=== PATIENT | female | born 1985 | race Caucasian/White ===

== ENCOUNTER 2016-06-27 12:22 | Outpatient (CLI) | payer OTHER ==
[~2016-06-27] VITALS: Ht 172.7 cm; Wt 77.2 kg
[2016-06-27] VITALS (8 sets, daily range): BP systolic 136–157; BP diastolic 81–98
[~2016-06-27 12:22] MED LIST: PRENATAL TABLE1 EAC3 PO; ZOFRAN ODT8 MG PO
[2016-06-27 13:05] LABS: EOSINOPHIL (%) 0.8 % (0-5); EOSINOPHIL COUNT 0.1 K/uL (0-0.3); HEMATOCRIT 32.4 % (36.0-46.0); IMMATURE GRANULOCYTE (%) 0.2 % (0.0-0.7); LYMPHOCYTE COUNT 1.5 K/uL (1.0-2.8); MCH 31.7 PG (29.0-34.0); MCHC 35.2 G/DL (30.0-36.0); MONOCYTE COUNT 0.8 K/uL (0-0.8); NEUTROPHIL COUNT 6.8 K/uL (1.8-6.4); PLATELET COUNT 208 K/uL (156-360); RBC DIS.WIDTH-SD 39.4 % (39-53); WHITE BLOOD COUNT 9.2 K/uL (4.1-10.2)
[2016-06-27] MEDS ORDERED: FIORICET,ESG1 TABLET PO (13:07)
[2016-06-27 13:44] LABS: ANION GAP 8 MEQ/L (2-14); CHLORIDE 108 MEQ/L (99-109); POTASSIUM 4.3 MEQ/L (3.7-5.4); SAMPLE HEMOLYSIS CHECK 0; SAMPLE ICTERIC CHECK 0; SAMPLE LIPEMIA CHECK 0; SODIUM 137 MEQ/L (136-147); TOTAL BILIRUBIN 0.2 MG/DL (0.0-1.0)
[2016-06-27 13:49] LABS: ALKALINE PHOSPHATASE 119 IU/L (3-129); GFR ESTIMATE (CALCULATED) > 59 mL/min/; GLUCOSE 72 mg/dL (70-99); UREA NITROGEN (BUN) 9 mg/dL (9-23); URIC ACID 4.1 mg/dL (3.1-9.2)
[2016-06-27 14:16] LABS: UR CREATININE CONCENTRATION 181.6 MG/DL
== END 2016-06-27 16:19 | disposition home or self-care (01) ==
LOC: LDRP-OP 12:22 → 2WEST 12:23 → LDRP-OP 09-20 10:22
PROVIDERS: Nurse Practitioner
DX: O16.3 Unspecified maternal hypertension, third trimester (principal); O99.89 Other specified diseases and conditions complicating pregnancy, childbirth and the puerperium; Z3A.31 31 weeks gestation of pregnancy
CPT/HCPCS: 59025; 80053; 82570; 84156; 84550; 85025; G0378

== ENCOUNTER 2016-06-28 20:19 | Outpatient (CLI) | payer OTHER ==
[2016-06-28] VITALS (9 sets, daily range): BP systolic 136–163; BP diastolic 79–92
[~2016-06-28 20:19] MED LIST changes: +FIORICET,ESG1 TABLET PO
[2016-06-28 21:31] LABS: EOSINOPHIL (%) 1.1 % (0-5); EOSINOPHIL COUNT 0.1 K/uL (0-0.3); HEMATOCRIT 31.2 % (36.0-46.0); IMMATURE GRANULOCYTE (%) 0.1 % (0.0-0.7); MCH 31.6 PG (29.0-34.0); MCHC 34.6 G/DL (30.0-36.0); MCV 91.2 FL (83-99); MEAN PLAT.VOLUME 11.1 uM^3 (9.5-12.4); MONOCYTE (%) 7.2 % (3-12); MONOCYTE COUNT 0.7 K/uL (0-0.8); NEUTROPHIL COUNT 6.4 K/uL (1.8-6.4); PLATELET COUNT 197 K/uL (156-360); RBC DIS.WIDTH-CV 11.9 % (11.8-14.6); RBC DIS.WIDTH-SD 39.7 % (39-53); RED BLOOD COUNT 3.42 M/uL (3.80-5.20); WHITE BLOOD COUNT 9.2 K/uL (4.1-10.2)
[2016-06-28 21:53] LABS: ALKALINE PHOSPHATASE 127 IU/L (3-129); ANION GAP 11 MEQ/L (2-14); CHLORIDE 106 MEQ/L (99-109); GFR ESTIMATE (CALCULATED) > 59 mL/min/; GLUCOSE 90 mg/dL (70-99); POTASSIUM 4.1 MEQ/L (3.7-5.4); SAMPLE HEMOLYSIS CHECK 0; SAMPLE ICTERIC CHECK 0; SAMPLE LIPEMIA CHECK 0; SODIUM 138 MEQ/L (136-147); TOTAL BILIRUBIN 0.2 MG/DL (0.0-1.0); UREA NITROGEN (BUN) 8 mg/dL (9-23); URIC ACID 4.1 mg/dL (3.1-9.2)
[2016-06-28 21:55] LABS: UR CREATININE CONCENTRATION 115.2 MG/DL
== END 2016-06-28 22:50 | disposition home or self-care (01) ==
LOC: LDRP-OP 20:19 → 2WEST 20:20 → LDRP-OP 09-20 17:34
PROVIDERS: Midwife
DX: O16.3 Unspecified maternal hypertension, third trimester (principal); O99.89 Other specified diseases and conditions complicating pregnancy, childbirth and the puerperium; Z3A.31 31 weeks gestation of pregnancy
CPT/HCPCS: 59025; 80053; 82570; 84156; 84550; 85025; G0378

== ENCOUNTER 2016-07-01 15:40 | Outpatient (CLI) | payer OTHER ==
[2016-07-01] VITALS (7 sets, daily range): BP systolic 134–161; BP diastolic 78–96
[~2016-07-01] VITALS: Ht 172.7 cm; Wt 80.7 kg
[2016-07-01 16:41] LABS: EOSINOPHIL (%) 0.8 % (0-5); EOSINOPHIL COUNT 0.1 K/uL (0-0.3); HEMATOCRIT 30.6 % (36.0-46.0); IMMATURE GRANULOCYTE (%) 0.3 % (0.0-0.7); LYMPHOCYTE COUNT 1.6 K/uL (1.0-2.8); MCH 31.2 PG (29.0-34.0); MCV 89.2 FL (83-99); MEAN PLAT.VOLUME 10.7 uM^3 (9.5-12.4); MONOCYTE (%) 9.9 % (3-12); MONOCYTE COUNT 0.9 K/uL (0-0.8); NEUTROPHIL (%) 71.5 % (45-76); NEUTROPHIL COUNT 6.7 K/uL (1.8-6.4); PLATELET COUNT 185 K/uL (156-360); RBC DIS.WIDTH-CV 12.1 % (11.8-14.6); RBC DIS.WIDTH-SD 38.9 % (39-53); RED BLOOD COUNT 3.43 M/uL (3.80-5.20); WHITE BLOOD COUNT 9.3 K/uL (4.1-10.2)
[2016-07-01 17:06] LABS: ALKALINE PHOSPHATASE 125 IU/L (3-129); ANION GAP 9 MEQ/L (2-14); CHLORIDE 108 MEQ/L (99-109); GFR ESTIMATE (CALCULATED) > 59 mL/min/; GLUCOSE 96 mg/dL (70-99); POTASSIUM 3.8 MEQ/L (3.7-5.4); SAMPLE HEMOLYSIS CHECK 0; SAMPLE ICTERIC CHECK 0; SAMPLE LIPEMIA CHECK 0; SODIUM 138 MEQ/L (136-147); TOTAL BILIRUBIN 0.2 MG/DL (0.0-1.0); UREA NITROGEN (BUN) 8 mg/dL (9-23)
[2016-07-01 17:22] LABS: UR CREATININE CONCENTRATION 58.8 MG/DL
[2016-07-02] VITALS (7 sets, daily range): BP systolic 114–165; BP diastolic 60–98
[2016-07-02 07:09] LABS: EOSINOPHIL (%) 0 % (0-5); HEMATOCRIT 32.8 % (36.0-46.0); IMMATURE GRANULOCYTE (%) 0.4 % (0.0-0.7); IMMATURE GRANULOCYTE COUNT 0.1 K/uL; LYMPHOCYTE COUNT 1.1 K/uL (1.0-2.8); MCH 31.1 PG (29.0-34.0); MCHC 34.8 G/DL (30.0-36.0); MCV 89.4 FL (83-99); MEAN PLAT.VOLUME 11.5 uM^3 (9.5-12.4); MONOCYTE (%) 2.2 % (3-12); MONOCYTE COUNT 0.3 K/uL (0-0.8); NEUTROPHIL (%) 88.9 % (45-76); NEUTROPHIL COUNT 11.7 K/uL (1.8-6.4); PLATELET COUNT 223 K/uL (156-360); RBC DIS.WIDTH-CV 11.8 % (11.8-14.6); RBC DIS.WIDTH-SD 38.4 % (39-53); RED BLOOD COUNT 3.67 M/uL (3.80-5.20)
[2016-07-02 07:12] LABS: WHITE BLOOD COUNT 13.1 K/uL (4.1-10.2)
[2016-07-02 10:02] LABS: ALKALINE PHOSPHATASE 131 IU/L (3-129); ANION GAP 11 MEQ/L (2-14); CHLORIDE 107 MEQ/L (99-109); GFR ESTIMATE (CALCULATED) > 59 mL/min/; GLUCOSE 124 mg/dL (70-99); SAMPLE HEMOLYSIS CHECK 0; SAMPLE ICTERIC CHECK 0; SAMPLE LIPEMIA CHECK 0; SODIUM 138 MEQ/L (136-147); UREA NITROGEN (BUN) 9 mg/dL (9-23)
[2016-07-02 10:04] LABS: TOTAL BILIRUBIN 0.3 MG/DL (0.0-1.0)
[2016-07-03 01:49] VITALS: BP 128/83
[2016-07-03 06:24] LABS: HEMATOCRIT 31.7 % (36.0-46.0); MCH 30.6 PG (29.0-34.0); MCHC 33.8 G/DL (30.0-36.0); MCV 90.6 FL (83-99); MEAN PLAT.VOLUME 11.3 uM^3 (9.5-12.4); PLATELET COUNT 220 K/uL (156-360); RBC DIS.WIDTH-CV 12.1 % (11.8-14.6); RBC DIS.WIDTH-SD 39.2 % (39-53); WHITE BLOOD COUNT 16.9 K/uL (4.1-10.2)
[2016-07-03 06:44] LABS: ALKALINE PHOSPHATASE 120 IU/L (3-129); ANION GAP 9 MEQ/L (2-14); CHLORIDE 109 MEQ/L (99-109); GFR ESTIMATE (CALCULATED) > 59 mL/min/; GLUCOSE 125 mg/dL (70-99); POTASSIUM 4.1 MEQ/L (3.7-5.4); SAMPLE HEMOLYSIS CHECK 0; SAMPLE ICTERIC CHECK 0; SAMPLE LIPEMIA CHECK 0; SODIUM 140 MEQ/L (136-147); UREA NITROGEN (BUN) 11 mg/dL (9-23)
[2016-07-03 06:45] LABS: TOTAL BILIRUBIN 0.2 MG/DL (0.0-1.0)
[2016-07-03 07:36] VITALS: BP 145/84
== END 2016-07-03 11:24 | disposition home or self-care (01) ==
LOC: LDRP-OP 15:40 → 2WEST 15:41 → LDRP-OP 09-20 23:10
PROVIDERS: Nurse Practitioner; Obstetrics & Gynecology
DX: O14.03 Mild to moderate pre-eclampsia, third trimester (principal); Z3A.32 32 weeks gestation of pregnancy
CPT/HCPCS: 59025; 80053; 81050; 82570; 84156; 85025; 85027; G0378; J0702

== ENCOUNTER 2016-07-04 10:58 | Inpatient (IN) | payer OTHER ==
[2016-07-04] VITALS (18 sets, daily range): BP systolic 121–176; BP diastolic 77–99
[~2016-07-04] VITALS: Ht 172.7 cm; Wt 82.3 kg
[2016-07-04 12:13] LABS: FIBRINOGEN 321 MG/DL (160-450); PROTHROMBIN TIME 9.9 (9.2-11.2)
[2016-07-04 12:20] LABS: EOSINOPHIL (%) 0.1 % (0-5); HEMATOCRIT 32.3 % (36.0-46.0); IMMATURE GRANULOCYTE COUNT 0.3 K/uL; LYMPHOCYTE COUNT 2.3 K/uL (1.0-2.8); MCH 31.5 PG (29.0-34.0); MCHC 34.7 G/DL (30.0-36.0); MEAN PLAT.VOLUME 11.6 uM^3 (9.5-12.4); MONOCYTE (%) 10.4 % (3-12); MONOCYTE COUNT 1.6 K/uL (0-0.8); NEUTROPHIL (%) 72.1 % (45-76); NEUTROPHIL COUNT 10.8 K/uL (1.8-6.4); PLATELET COUNT 230 K/uL (156-360); RBC DIS.WIDTH-CV 11.9 % (11.8-14.6); RBC DIS.WIDTH-SD 39.7 % (39-53); RED BLOOD COUNT 3.55 M/uL (3.80-5.20); WHITE BLOOD COUNT 14.9 K/uL (4.1-10.2)
[2016-07-04 12:21] LABS: ANION GAP 10 MEQ/L (2-14); CHLORIDE 107 MEQ/L (99-109); SAMPLE HEMOLYSIS CHECK 0; SAMPLE ICTERIC CHECK 0; SAMPLE LIPEMIA CHECK 0; SODIUM 140 MEQ/L (136-147); TOTAL BILIRUBIN 0.2 MG/DL (0.0-1.0)
[2016-07-04 12:28] LABS: ALKALINE PHOSPHATASE 128 IU/L (3-129); GFR ESTIMATE (CALCULATED) > 59 mL/min/; UREA NITROGEN (BUN) 12 mg/dL (9-23); URIC ACID 4.9 mg/dL (3.1-9.2)
[2016-07-04 12:29] LABS: UR CREATININE CONCENTRATION 166.1 MG/DL
[2016-07-04 12:30] LABS: GLUCOSE 79 mg/dL (70-99)
[2016-07-05] VITALS (34 sets, daily range): BP systolic 104–165; BP diastolic 61–105
[2016-07-05 09:09] LABS: EOSINOPHIL (%) 0.1 % (0-5); HEMATOCRIT 33.8 % (36.0-46.0); IMMATURE GRANULOCYTE (%) 1.6 % (0.0-0.7); IMMATURE GRANULOCYTE COUNT 0.2 K/uL; LYMPHOCYTE COUNT 1.8 K/uL (1.0-2.8); MCH 31.4 PG (29.0-34.0); MCHC 34.6 G/DL (30.0-36.0); MCV 90.6 FL (83-99); MEAN PLAT.VOLUME 11.3 uM^3 (9.5-12.4); MONOCYTE (%) 10.3 % (3-12); MONOCYTE COUNT 1.4 K/uL (0-0.8); NEUTROPHIL COUNT 10.2 K/uL (1.8-6.4); PLATELET COUNT 223 K/uL (156-360); RBC DIS.WIDTH-CV 11.8 % (11.8-14.6); RBC DIS.WIDTH-SD 38.6 % (39-53); RED BLOOD COUNT 3.73 M/uL (3.80-5.20); WHITE BLOOD COUNT 13.5 K/uL (4.1-10.2)
[2016-07-05 09:36] LABS: ALKALINE PHOSPHATASE 131 IU/L (3-129); ANION GAP 9 MEQ/L (2-14); CHLORIDE 106 MEQ/L (99-109); GFR ESTIMATE (CALCULATED) > 59 mL/min/; GLUCOSE 91 mg/dL (70-99); POTASSIUM 3.7 MEQ/L (3.7-5.4); SAMPLE HEMOLYSIS CHECK 0; SAMPLE ICTERIC CHECK 0; SAMPLE LIPEMIA CHECK 0; SODIUM 138 MEQ/L (136-147); UREA NITROGEN (BUN) 7 mg/dL (9-23)
[2016-07-05 09:37] LABS: MAGNESIUM 5.5 mg/dl (1.3-2.7); TOTAL BILIRUBIN 0.3 MG/DL (0.0-1.0)
[2016-07-05 23:19] LABS: BASE EXCESS -4.1 mEq/L (-3 to +3); BICARBONATE 27.9 mEq/L (22-26); CARBOXY HGB 0.1 % (0-5); METHEMOGLOBIN 1.9 % (0-1.5); PCO2 84 mm Hg (35-45); PO2 < 28 mm Hg (80-100)
[2016-07-05 23:20] LABS: COMMENTS - BLOOD GASES OR DRAW; SITE UMBILICAL CORD
[2016-07-05 23:22] LABS: pH 7.13 (7.35-7.45)
[2016-07-05] MEDS ORDERED: IBUPROFEN800 MG PO (23:31)
[2016-07-06] VITALS (22 sets, daily range): BP systolic 124–169; BP diastolic 73–106
[2016-07-06 06:28] LABS: HEMATOCRIT 30.1 % (36.0-46.0); MCH 30.6 PG (29.0-34.0); MCHC 34.2 G/DL (30.0-36.0); MCV 89.3 FL (83-99); MEAN PLAT.VOLUME 10.8 uM^3 (9.5-12.4); PLATELET COUNT 184 K/uL (156-360); RBC DIS.WIDTH-CV 11.6 % (11.8-14.6); RBC DIS.WIDTH-SD 37.6 % (39-53); RED BLOOD COUNT 3.37 M/uL (3.80-5.20); WHITE BLOOD COUNT 15.3 K/uL (4.1-10.2)
[2016-07-06 06:40] LABS: EOSINOPHIL (%) 0.3 % (0-5); IMMATURE GRANULOCYTE (%) 0.7 % (0.0-0.7); IMMATURE GRANULOCYTE COUNT 0.1 K/uL; LYMPHOCYTE COUNT 2.3 K/uL (1.0-2.8); MONOCYTE (%) 11.2 % (3-12); MONOCYTE COUNT 1.7 K/uL (0-0.8); NEUTROPHIL (%) 72.5 % (45-76); NEUTROPHIL COUNT 11.1 K/uL (1.8-6.4)
[2016-07-07 01:10] VITALS: BP 121/66
[2016-07-07 04:15] VITALS: BP 136/85
[2016-07-07 07:55] VITALS: BP 157/92
[2016-07-07 11:48] VITALS: BP 143/90
[2016-07-07 15:45] VITALS: BP 156/98
[2016-07-07 20:32] VITALS: BP 154/88
[2016-07-08 01:12] VITALS: BP 149/92
[2016-07-08 04:20] VITALS: BP 138/88
[2016-07-08 07:30] VITALS: BP 159/93
[2016-07-08] MEDS ORDERED: LABETALOL HCL200 MG PO (09:35)
[2016-07-08 09:43] VITALS: BP 140/82
== END 2016-07-08 14:00 | disposition home or self-care (01) | DRG 775 ==
LOC: LDRP-OP 10:58 → 2WEST 10:59 → LDRP-OP 09-28 11:39
PROVIDERS: Nurse Practitioner; Obstetrics & Gynecology
PROC: 3E0P7GC Introduction of Other Therapeutic Substance into Female Reproductive, Via Natural or Artificial Opening (ICD-10-PCS; principal; 2016-07-04)
PROC: 10E0XZZ Delivery of Products of Conception, External Approach (ICD-10-PCS; principal; 2016-07-04)
PROC: 10907ZC Drainage of Amniotic Fluid, Therapeutic from Products of Conception, Via Natural or Artificial Opening (ICD-10-PCS; principal; 2016-07-04)
PROC: 00HU33Z Insertion of Infusion Device into Spinal Canal, Percutaneous Approach (ICD-10-PCS; 2016-07-06)
PROC: 3E0R3CZ (ICD-10-PCS; 2016-07-06)
DX: O14.14 Severe pre-eclampsia complicating childbirth (principal); O99.824 Streptococcus B carrier state complicating childbirth; Z3A.32 32 weeks gestation of pregnancy; Z37.0 Single live birth; O99.344 Other mental disorders complicating childbirth; F41.9 Anxiety disorder, unspecified
CPT/HCPCS: 36600; 59025; 80053; 82570; 82803; 83030; 83735; 84156; 84550; 85025; 85027; 85384; 85610; 85730; 86850; 86870; 86900; 86901; 86905; 86920; 88307; C1755; G0378; J2405; J2540; J2790; J3010; J3475; J7120